=== PATIENT | male | born 1960 | race American Indian/Alaskan Native ===

== ENCOUNTER 2017-04-30 05:59 | Day surgery (SDC) | payer OTHER ==
[~2017-04-30] VITALS: Ht 180.3 cm; Wt 87.5 kg
[2017-04-30] MEDS ORDERED: COCAINE TOPICAL SOLN 4%, 4ML ONE (06:10)
[2017-04-30] MEDS ORDERED: OXYMETAZOLINE NASAL SPRAY 0.05%, 15ML ONE (06:10)
[2017-04-30] MEDS ORDERED: MUPIROCIN OINT 2%, 22GM ONE (06:10)
[2017-04-30] MEDS ORDERED: EPINEPHRINE 1 MG/ML, 1ML ONE (06:11)
[2017-04-30] MEDS ORDERED: LIDOCAINE/PF 1%, 30ML ONE (06:11)
[2017-04-30] MEDS ORDERED: PANT20TA3 PO (06:36)
[2017-04-30] MEDS ORDERED: FLUO40CA2 PO (06:36)
[2017-04-30] MEDS ORDERED: ALPR-475 PO (06:36)
[2017-04-30] MEDS ORDERED: ZOLP10TA5 PO (06:36)
[2017-04-30 06:37] VITALS: BP 122/75
[2017-04-30] MEDS ORDERED: LACTATED RINGERS 1,000 ML IV SCH (06:46)
[2017-04-30 06:48] LABS: HEMATOCRIT 35.2 % (39.2-51.8); HEMOGLOBIN 11.6 g/dL (13.7-18.0); WHITE BLOOD COUNT 7.5 x10^3/uL (3.4-10)
[2017-04-30 07:00] LABS: BLOOD UREA NITROGEN 20 mg/dL (7-18)
[2017-04-30] MEDS ORDERED: MIDAZOLAM 1 MG/ML, 2ML ONE (07:26)
[2017-04-30] MEDS ORDERED: FENTANYL PF 100 MCG/2ML ONE ×2 (07:27)
[2017-04-30] MEDS ORDERED: ALBUTEROL SULFATE 200 PUFFS/8.5 GR INH ONE (07:37)
[2017-04-30] MEDS ORDERED: PROPOFOL 10 MG/ML, 20ML ONE (07:37)
[2017-04-30] MEDS ORDERED: KETAMINE 10 MG/ML, 20ML ONE ×2 (07:37→07:54)
[2017-04-30] MEDS ORDERED: SUCCINYLCHOLINE 20 MG/ML, 10ML ONE (07:37)
[2017-04-30] MEDS ORDERED: GLYCOPYRROLATE 0.2MG/1ML ONE (07:37)
[2017-04-30] MEDS ORDERED: DEXAMETHASONE 4 MG/ML, 1ML ONE (07:37)
[2017-04-30] MEDS ORDERED: ROCURONIUM 10 MG/ML ONE (07:37)
[2017-04-30] MEDS ORDERED: CEFAZOLIN 1,000 MG ONE (07:37)
[2017-04-30] MEDS ORDERED: ONDANSETRON 2MG/ML, 2ML ONE (07:37)
[2017-04-30] MEDS ORDERED: hydrALAzine 20 MG/ML, 1ML IV PRN (08:00)
[2017-04-30] MEDS ORDERED: LABETALOL 5MG/ML, 20ML IV PRN (08:00)
[2017-04-30] MEDS ORDERED: ACETAMINOPHEN 325 MG TABLET PO PRN (08:00)
[2017-04-30] MEDS ORDERED: OXYcodone 5 MG/5 ML ORAL.SOL UDC PO PRN (08:00)
[2017-04-30] MEDS ORDERED: ALBUTEROL SULFATE 2.5 MG/3 ML NPPB PRN (08:00)
[2017-04-30] MEDS ORDERED: MIDAZOLAM 1 MG/ML, 2ML IV PRN (08:00)
[2017-04-30] MEDS ORDERED: HYDROmorphone 1 MG/ML, 1ML IV PRN (08:00)
[2017-04-30] MEDS ORDERED: MEPERIDINE/PF 25MG/0.5ML IVPush PRN (08:00)
[2017-04-30] MEDS ORDERED: PROMETHAZINE 25 MG/ML, 1ML IV PRN (08:00)
[2017-04-30] MEDS ORDERED: FENTANYL PF 100 MCG/2ML IV PRN (08:00)
[2017-04-30] MEDS ORDERED: ONDANSETRON 2MG/ML, 2ML IVPush PRN (08:00)
[2017-04-30] MEDS ORDERED: ACETAMINOPHEN 325 MG TABLET ONE (09:59)
[2017-04-30] MEDS ORDERED: OXYcodone 5 MG/5 ML ORAL.SOL UDC ONE (09:59)
[2017-04-30] MEDS ORDERED: ACETAMINOPHEN 650 MG/20.3 ML UDC ONE (09:59)
== END 2017-04-30 12:00 ==
LOC: OUT 05:59
PROVIDERS: ATTEND Otolaryngology Facial Plastic Surgery
DX: J34.2 Deviated nasal septum (principal); J34.89 Other specified disorders of nose and nasal sinuses; J32.2 Chronic ethmoidal sinusitis; J32.0 Chronic maxillary sinusitis; E11.9 Type 2 diabetes mellitus without complications; F17.200 Nicotine dependence, unspecified, uncomplicated; E66.9 Obesity, unspecified; Z68.27 Body mass index [BMI] 27.0-27.9, adult; Z98.84 Bariatric surgery status
CPT/HCPCS: 30465; 30520; 30930; 31254; 31256; 36415; 71010; 80048; 85025; 88304; 93005; J0171; J2250; J3010; J3490; J7120; J0690; J1100; J2405; J2704; J0330

== ENCOUNTER 2019-04-08 14:59 | Emergency (ER) | payer OTHER ==
[~2019-04-08] VITALS: Ht 180.3 cm; Wt 84.8 kg
[~2019-04-08 14:59] MED LIST: ALPR0.5T7 PO; FLUO40CA2 PO; PANT20TA3 PO; ZOLP10TA5 PO
[2019-04-08 15:54] LABS: BASOPHILS # (AUTO) 0.03 x10^3/uL (0-0.1); BASOPHILS % (AUTO) 0 % (0-1); EOSINOPHILS # (AUTO) 0.25 x10^3/uL (0-0.4); EOSINOPHILS % (AUTO) 3 % (1-7); LYMPHOCYTES # (AUTO) 2.03 x10^3/uL (1-3.4); LYMPHOCYTES % (AUTO) 26 % (22-44); MD NO; MEAN CORPUSCULAR HEMOGLOBIN 33.8 pg (27.5-34.5); MEAN CORPUSCULAR HGB CONC 33.2 g/dL (33.2-36.2); MEAN CORPUSCULAR VOLUME 101.8 fL (81-97); MEAN PLATELET VOLUME 9.9 fL (7.4-10.4); MONOCYTES # (AUTO) 0.61 x10^3/uL (0.2-0.8); MONOCYTES % (AUTO) 8 % (2-9); NEUTROPHILS # (AUTO) 4.97 x10^3/uL (1.8-6.8); NEUTROPHILS % (AUTO) 63 % (42-75); PLATELET COUNT 167 x10^3/uL (130-400); RED BLOOD COUNT 4.21 x10^6/uL (4.38-5.82); RED CELL DISTRIBUTION WIDTH 14.1 % (9.4-14.8)
[2019-04-08 16:03] LABS: ALBUMIN 3.7 g/dL (3.4-5.0); ANION GAP 8 mmol/L (5-15); CALCIUM 8.9 mg/dL (8.5-10.1); CHLORIDE 110 mmol/L (98-107)
[2019-04-08 16:06] LABS: ALANINE AMINOTRANSFERASE 35 U/L (12-78); ALKALINE PHOSPHATASE 79 U/L (45-117); BILIRUBIN,TOTAL 0.4 mg/dL (0.2-1.0); TOTAL PROTEIN 7.4 g/dL (6.4-8.2)
--- NOTE | 2019-04-08 17:06 | NUR ---
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
--- NOTE | 2019-04-08 17:13 | NUR ---
PT AMBULATORY WITH STEADY GAIT FROM LOBBY TO ROOM.
--- NOTE | 2019-04-08 17:23 | NUR ---
PT HERE FOR LUQ ABDOMINAL PAIN. STATES IT STARTED SUNDAY WITH A "BAD" FEVER. STATES HE DID NOT HAVE A THERMOMETER TO CHECK HIS FEVER HE WAS [place] BUT FELT HOT, SWEATY, AND CONFUSED. PT AFEBRILE TODAY. DENIES N/V. DENIES DIARRHEA. PT STATES PAIN IS A 4/10 AT THIS TIME. NADN. SITTING ON GURNEY. VSS. DENIES NEEDS.
[2019-04-08 18:01] LABS: MICROSCOPIC NOT IND
[2019-04-08 18:11] LABS: CULTURE INDICATED? NO
--- NOTE | 2019-04-08 18:26 | NUR ---
PT SITTING ON GURSALEEM AT THIS TIME. ALEX. VSS. DENIES NEEDS. GOING TO START A PIV FOR CT NOW. PT AWARE OF POC.
--- NOTE | 2019-04-08 18:41 | NUR ---
PT TO CT AT THIS TIME.
--- NOTE | 2019-04-08 18:57 | NUR ---
REPORT RECIEVED FROM YENNI ROJAS. PT CURRENTLY AT CT SCAN.
[2019-04-08] MEDS ORDERED: OMNIPAQUE 350 MG/ML, 100ML BOTTLE ONE (19:01)
--- NOTE | 2019-04-08 19:08 | NUR ---
PT RETURNED FROM CT SCAN. CALL LIGHT WITHIN REACH. PT REFUSING PAIN MEDICATIONS AT THIS TIME. PT UPDATED ON POC. NAD. WILL CONTINUE TO MONITOR.
[2019-04-08 19:44] VITALS: BP 162/96
--- NOTE | 2019-04-08 19:45 | NUR ---
HOWARD RN: DISCHARGED PATIENT FOR PRIMARY RNLAUREN
== END 2019-04-08 19:46 | disposition home or self-care (01) ==
LOC: ED 19:40
DX: K85.00 Idiopathic acute pancreatitis without necrosis or infection (principal)
CPT/HCPCS: 36415; 74022; 74177; 80053; 81003; 83690; 85025; 93005; 99284; Q9967